=== PATIENT | female | born 1970 | race Caucasian/White ===

== ENCOUNTER 2020-09-08 15:59 | Emergency (ER) | payer BC ==
[~2020-09-08] VITALS: Ht 167.6 cm; Wt 76.7 kg
[2020-09-08 16:46] LABS: PLATELET COUNT 261 x10^3mcL (179-408); RED CELL DISTRIBUTION WIDTH 12.1 % (12.3-17.7)
[2020-09-08 16:48] LABS: BASOPHIL % 2.8 % (0.2-1.3)
[2020-09-08 16:54] LABS: CARBON DIOXIDE 27.1 mmol/L (21-32); CHLORIDE SERUM 101 mmol/L (98-107); CREATININE SERUM 0.5 mg/dL (0.6-1.0); GFR1 > 60 mL/min; GLUCOSE SERUM 128 mg/dL (74-106); POTASSIUM SERUM 4.2 mmol/L (3.5-5.1); SODIUM SERUM 138 mmol/L (136-145)
[2020-09-08 16:58] LABS: ALBUMIN 3.9 g/dL (3.4-5.0); ALKALINE PHOSPHATASE 104 U/L (46-116); ALT/SGPT 57 U/L (14-59); AMYLASE 43 U/L (25-115); AST/SGOT 57 U/L (15-37); BILIRUBIN TOTAL 0.4 mg/dL (0.20-1.00); LIPASE 108 IU/L (73-393); TOTAL PROTEIN, SERUM 7.8 g/dL (6.4-8.2)
[2020-09-08] MEDS ORDERED: REGLAN10 M1 PO (18:06)
[2020-09-08] MEDS ORDERED: IMODIUM MULTI-S1 TAB PO (18:06)
[2020-09-08] MEDS ORDERED: MOT800 PO (18:06)
[2020-09-08 18:57] VITALS: BP 139/79
== END 2020-09-08 18:57 | disposition home or self-care (01) ==
LOC: ED 15:59
PROVIDERS: Emergency Medicine
DX: A08.4 Viral intestinal infection, unspecified (principal); E11.9 Type 2 diabetes mellitus without complications; E78.00 Pure hypercholesterolemia, unspecified; E03.9 Hypothyroidism, unspecified; Z20.828 Contact with and (suspected) exposure to other viral communicable diseases
CPT/HCPCS: 82962; J1200; J1885; J2765; J7030